=== PATIENT | female | born 1955 | race Two or more races ===

== ENCOUNTER 2025-02-04 11:15 | Inpatient (IN) | payer OTHER ==
[~2025-02-04] VITALS: Ht 121.9 cm; Wt 95.3 kg
[2025-02-04] MEDS ORDERED: XARELTO20 MG (12:44)
[2025-02-04] MEDS ORDERED: METFORMIN HCL500 M3 PO (12:44)
[2025-02-04] MEDS ORDERED: ADEMPAS2.5 MG PO (12:44)
[2025-02-04] MEDS ORDERED: ENTRESTO 97 MG1 EACH PO (12:45)
[2025-02-04] MEDS ORDERED: ACTOS30 MG PO (12:45)
[2025-02-04] MEDS ORDERED: SYNTHROID50 MCG PO (12:46)
[2025-02-04] MEDS ORDERED: LASIX20 MG PO (12:46)
[2025-02-04] MEDS ORDERED: EZALLOR SPRINKL20 MG PO (12:47)
[2025-02-04] MEDS ORDERED: ACID REDUCER20 M1 PO (12:47)
[2025-02-04] MEDS ORDERED: CARVEDILOL25 MG (12:50)
[2025-02-04] MEDS ORDERED: FARXIGA10 MG PO (12:50)
[2025-02-04] MEDS ORDERED: PLAQUENIL (12:51)
[2025-02-04] MEDS ORDERED: NEURONTIN300 MG PO (12:51)
[2025-02-11] MEDS ORDERED: CEFTRIAXONE SODIUM 2,000 MG VIAL IV ONE (10:45)
[2025-02-11] MEDS ORDERED: METRONIDAZOLE/SODIUM CHLORIDE 500 MG/100 ML PIGGYBACK IV ONE (10:45)
[2025-02-11] MEDS ORDERED: SUGAMMADEX SODIUM 200 MG/2 ML VIAL IV ONE (12:15)
[2025-02-11] MEDS ORDERED: MORPHINE SULFATE 4 MG/ML VIAL IV ONE ×2 (13:25→15:30)
[2025-02-11] MEDS ORDERED: MORPHINE SULFATE 4 MG/ML CARTRIDGE IV PRN (14:45)
[2025-02-11] MEDS ORDERED: OxyCODONE HCL 5 MG TABLET (ROXICODONE) PO PRN (14:45)
[2025-02-11] MEDS ORDERED: ONDANSETRON HCL 2 MG/ML VIAL IV PRN (14:45)
[2025-02-11] MEDS ORDERED: RINGERS SOLUTION,LACTATED 1,000 ML IV SCH (14:45)
[2025-02-11] MEDS ORDERED: METOCLOPRAMIDE HCL 5 MG/ML VIAL ONE (16:28)
[2025-02-11] MEDS ORDERED: HYOSCYAMINE SULFATE 0.125 MG TAB.SUBL SL SCH (17:00)
[2025-02-11] MEDS ORDERED: SIMETHICONE 125 MG CAPSULE PO SCH (17:00)
[2025-02-11] MEDS ORDERED: GABAPENTIN 300 MG CAPSULE PO SCH (17:00)
[2025-02-11] MEDS ORDERED: CELECOXIB 200 MG CAPSULE PO SCH (17:00)
[2025-02-11] MEDS ORDERED: METOCLOPRAMIDE HCL 5 MG/ML VIAL IV SCH (17:00)
[2025-02-11 17:12] LABS: BASO % 0.3 % (0.1-1.2); EOS # 0.01 (0.04-0.54); EOS % 0.1 % (0.7-7.0); LYMPH # 0.76 (1.18-3.74); LYMPH % 10.6 % (19.3-53.1); MEAN PLATELET VOLUME 10.50 fl (9.4-12.4); MONO # 0.47 (0.24-0.82); MONO % 6.5 % (4.7-12.5); NEUT # 5.92 (1.56-6.13); NEUT % 82.2 % (34.0-71.1); RED CELL DISTRIBUTION WIDTH 15.1 % (11.6-14.4)
[2025-02-11] MEDS ORDERED: ENALAPRILAT DIHYDRATE 1.25 MG/ML VIAL IV PRN (18:00)
[2025-02-11] MEDS ORDERED: INSULIN LISPRO 1,000 UNIT/10 ML UNITS SUBCUTANEO PRN (18:00)
[2025-02-11] MEDS ORDERED: LEVALBUTEROL HCL 0.63 MG/3 ML SOLUTION IH SCH (18:00)
[2025-02-11] MEDS ORDERED: DEXTROSE 50 % IN WATER 0.5 G/ML VIAL IV PRN (18:00)
[2025-02-11] MEDS ORDERED: ACETAMINOPHEN 500 MG GEL..CAP PO ONE (18:42)
[2025-02-11 20:00] VITALS: BP 155/74; O2SAT 95
[2025-02-11] MEDS ORDERED: ACETAMINOPHEN 500 MG GEL..CAP PO SCH (20:00)
[2025-02-11] MEDS ORDERED: FAMOTIDINE/PF 20 MG/2 ML VIAL IV PUSH SCH (21:00)
[2025-02-11] MEDS ORDERED: ADEMPAS 2.5 MG PO SCH (21:00)
[2025-02-11] MEDS ORDERED: CARVEDILOL 25 MG TABLET PO SCH (21:00)
[2025-02-11] MEDS ORDERED: ENTRESTO 97 MG/103 MG PO SCH (21:00)
[2025-02-11 22:42] LABS: ABG PH 7.430 (7.35-7.45); BICARBONATE 24.7 mmol/l (23-25); o2 32 %
[2025-02-11 22:43] LABS: ABG PO2 78.4 mmHg (80-100)
[2025-02-12] VITALS (9 sets, daily range): BP systolic 105–121; BP diastolic 50–64; O2SAT 90–98
[2025-02-12] MEDS ORDERED: SYNTHROID 50 MCG (MARCA ORIGINAL) PO SCH (06:00)
[2025-02-12 07:09] LABS: BASO % 0.2 % (0.1-1.2); EOS # 0.13 (0.04-0.54); EOS % 2.6 % (0.7-7.0); LYMPH # 0.66 (1.18-3.74); LYMPH % 13.4 % (19.3-53.1); MEAN PLATELET VOLUME 10.40 fl (9.4-12.4); MONO # 0.41 (0.24-0.82); MONO % 8.4 % (4.7-12.5); NEUT # 3.69 (1.56-6.13); NEUT % 75.2 % (34.0-71.1); RED CELL DISTRIBUTION WIDTH 15.3 % (11.6-14.4)
[2025-02-12 07:19] LABS: BUN CREA RATIO 29.0 (7.0-25.0); CREATININE SERUM 0.38 mg/dL (0.55-1.02); GFR 168.92; GLUCOSE FASTING 106.0 mg/dL (65-100); OSMOLALITY SERUM 285.0 MOSM/KG (275-295)
[2025-02-12] MEDS ORDERED: POTASSIUM CHLORIDE 20MEQ/100ML H2O PB IV STA (07:57)
[2025-02-12] MEDS ORDERED: MAGNESIUM SULFATE IN WATER 50 ML IV NR (08:00)
[2025-02-12] MEDS ORDERED: LACTOBACILLUS ACIDOPHILUS 1 CAP CAP PO SCH (09:00)
[2025-02-12] MEDS ORDERED: LACTULOSE 20 G/30 ML BLIST.PACK PO SCH (09:00)
[2025-02-12] MEDS ORDERED: DEXTROSE 50 % IN WATER 0.5 G/ML VIAL IV PRN (11:00)
[2025-02-12] MEDS ORDERED: INSULIN LISPRO 1,000 UNIT/10 ML UNITS SUBCUTANEO PRN (11:00)
[2025-02-12] MEDS ORDERED: ENOXAPARIN SODIUM 60 MG/0.6 ML SYRINGE SUBCUTANEO STA (14:00)
[2025-02-12] MEDS ORDERED: ROSUVASTATIN CALCIUM 20 MG TABLET PO SCH (17:00)
[2025-02-12] MEDS ORDERED: ENOXAPARIN SODIUM 40 MG/0.4 ML SYRINGE SUBCUTANEO SCH (17:00)
[2025-02-13] VITALS (8 sets, daily range): BP systolic 88–130; BP diastolic 53–70; O2SAT 90–98
[2025-02-13] MEDS ORDERED: 0.9 % SODIUM CHLORIDE 1 ML IV ONE (00:15)
[2025-02-13 06:27] LABS: BASO % 0.2 % (0.1-1.2); EOS # 0.20 (0.04-0.54); EOS % 5.0 % (0.7-7.0); LYMPH # 0.64 (1.18-3.74); LYMPH % 15.8 % (19.3-53.1); MEAN PLATELET VOLUME 11.10 fl (9.4-12.4); MONO # 0.36 (0.24-0.82); MONO % 8.9 % (4.7-12.5); NEUT # 2.82 (1.56-6.13); NEUT % 69.9 % (34.0-71.1); RED CELL DISTRIBUTION WIDTH 15.8 % (11.6-14.4)
[2025-02-13 06:59] LABS: BUN CREA RATIO 19.0 (7.0-25.0); CREATININE SERUM 0.37 mg/dL (0.55-1.02); GFR 174.2; GLUCOSE FASTING 81.0 mg/dL (65-100); OSMOLALITY SERUM 291.0 MOSM/KG (275-295)
[2025-02-13] MEDS ORDERED: ENOXAPARIN SODIUM 40 MG/0.4 ML SYRINGE SUBCUTANEO SCH (09:00)
[2025-02-13] MEDS ORDERED: ENOXAPARIN SODIUM 60 MG/0.6 ML SYRINGE SUBCUTANEO SCH (09:00)
[2025-02-13] MEDS ORDERED: MAGNESIUM CHLORIDE 70 MG TABLET.DR PO STA (10:16)
[2025-02-13] MEDS ORDERED: POTASSIUM CHLORIDE 8 MEQ TABLET PO STA (10:16)
== END 2025-02-13 17:01 | disposition home or self-care (01) | DRG 333 ==
LOC: SURG 02-11 07:00 → O/R 02-11 07:00 → SURH 02-11 10:30 → SURG 02-11 13:40
PROVIDERS: Internal Medicine Geriatric Medicine; ADMIT Colon & Rectal Surgery; ATTEND Colon & Rectal Surgery
PROC: 4A033R1 Measurement of Arterial Saturation, Peripheral, Percutaneous Approach (ICD-10-PCS; 2025-02-11)
PROC: 4A12X4Z Monitoring of Cardiac Electrical Activity, External Approach (ICD-10-PCS; 2025-02-11)
PROC: 3E0F7GC Introduction of Other Therapeutic Substance into Respiratory Tract, Via Natural or Artificial Opening (ICD-10-PCS; 2025-02-11)
PROC: 0DTP4ZZ Resection of Rectum, Percutaneous Endoscopic Approach (ICD-10-PCS; principal; 2025-02-11 10:30)
DX: K57.32 Diverticulitis of large intestine without perforation or abscess without bleeding (principal); D68.59 Other primary thrombophilia; I10 Essential (primary) hypertension; E11.9 Type 2 diabetes mellitus without complications; J44.9 Chronic obstructive pulmonary disease, unspecified; Z86.711 Personal history of pulmonary embolism; E03.9 Hypothyroidism, unspecified; E66.01 Morbid (severe) obesity due to excess calories; I27.20 Pulmonary hypertension, unspecified; Z68.36 Body mass index [BMI] 36.0-36.9, adult

== ENCOUNTER 2025-03-22 11:36 | Inpatient (IN) | payer OTHER ==
[~2025-03-22] VITALS: Ht 162.6 cm; Wt 90.7 kg
[~2025-03-22 11:36] MED LIST: ACID REDUCER20 M1 PO; ACTOS30 MG PO; ADEMPAS2.5 MG PO; CARVEDILOL25 MG; ENTRESTO 97 MG1 EACH PO; EZALLOR SPRINKL20 MG PO; FARXIGA10 MG PO; IPRATROPIU0.2 MG/1 M; IRON236 MG; LASIX20 MG PO; METFORMIN HCL500 M3 PO; NEURONTIN300 MG PO; PLAQUENIL; SYNTHROID50 MCG PO; XARELTO20 MG
[2025-03-22] MEDS ORDERED: METFORMIN HCL1000 M2 (11:46)
[2025-03-22] MEDS ORDERED: XARELTO20 MG (11:46)
[2025-03-22] MEDS ORDERED: ADEMPAS2.5 MG (11:46)
[2025-03-22] MEDS ORDERED: PLAQUENIL (11:47)
[2025-03-22] MEDS ORDERED: ACTOS30 MG (11:47)
[2025-03-22] MEDS ORDERED: CRESTOR40 MG (11:47)
[2025-03-22] MEDS ORDERED: ENTRESTO 97 MG1 EACH (11:47)
[2025-03-22] MEDS ORDERED: SYNTHROID50 MCG (11:47)
[2025-03-22] MEDS ORDERED: CARVEDILOL (11:48)
[2025-03-22] MEDS ORDERED: OMEPRAZOLE20 M2 (11:48)
[2025-03-22] MEDS ORDERED: FARXIGA10 MG (11:48)
[2025-03-22] MEDS ORDERED: HORIZANT300 MG (11:48)
[2025-03-22] MEDS ORDERED: FEROSUL (11:48)
--- NOTE | 2025-03-22 11:49 | NUR ---
SE RECIBE PACIENTE ALERTA Y ORIENTADA X 3 ESFERAS EN [facility]ANCIA DEL [facility] POR DIVERTICULITIS. PACIENTE INDICA QUE DESDE HACE VARIOS RUBIO PRESENTA DOLOR ADOMINAL, VOMITOS Y DIARREAS. REFIERE QUE FUE OPERADA POR EN EL MES DE SEPTIEMBRE Y QUE LE REMOVIERON PARTE DEL INTESTINO.
[2025-03-22] MEDS ORDERED: DEXTROSE 50 % IN WATER 0.5 G/ML DISP.SYRIN IV ONE (11:54)
[2025-03-22] MEDS ORDERED: DEXTROSE 50 % IN WATER 0.5 G/ML VIAL IV ONE (12:00)
--- NOTE | 2025-03-22 12:00 | NUR ---
SE NOTIFICA A DIRECTOR TELEHEALTH TOSTE DXT EN 66MG/DL. SE ADMINISTRA DEXTROSE 25GM 50% IV.
[2025-03-22] MEDS ORDERED: FAMOTIDINE/PF 20 MG/2 ML VIAL IV ONE (12:30)
[2025-03-22] MEDS ORDERED: ONDANSETRON HCL 2 MG/ML VIAL IV ONE (12:30)
[2025-03-22] MEDS ORDERED: 0.9 % SODIUM CHLORIDE 1,000 ML IV ONE (12:30)
[2025-03-22] MEDS ORDERED: PIPERACILLIN/TAZOBACTAM SODIUM 3.375 GM VIAL IV ONE ×3 (12:30→16:26)
[2025-03-22] MEDS ORDERED: ONDANSETRON HCL 2 MG/ML VIAL ONE (12:47)
[2025-03-22] MEDS ORDERED: FAMOTIDINE/PF 20 MG/2 ML VIAL ONE (12:47)
--- NOTE | 2025-03-22 12:57 | NUR ---
SE ORIENTA A PACIENTE SOBRE TRATAMIENTO MEDICO, REFIERE ENTENDER. SE REALIZAN MUESTRAS DE LABORATORIO BAJO MEDIDAS ASEPTICAS. SE ADMINISTRAN MEDICAMENTOS STEFAN ORDEN MEDICA. SE COORDINAN BJ X. SE REALIZA EKG. PACIENTE MANEJADA POR . PENDIENTE RE-EVALUACION MEDICA.
[2025-03-22 13:25] LABS: BASO % 0.6 % (0.1-1.2); EOS # 0.23 (0.04-0.54); EOS % 5.0 % (0.7-7.0); LYMPH # 0.50 (1.18-3.74); LYMPH % 10.8 % (19.3-53.1); MEAN PLATELET VOLUME 10.10 fl (9.4-12.4); MONO # 0.28 (0.24-0.82); MONO % 6.1 % (4.7-12.5); NEUT # 3.56 (1.56-6.13); NEUT % 77.1 % (34.0-71.1); RED CELL DISTRIBUTION WIDTH 15.5 % (11.6-14.4)
[2025-03-22] MEDS ORDERED: PIPERACILLIN/TAZOBACTAM SODIUM 3.375 GM in DEXTROSE 5 % IN WATER 100 ML IV SCH (13:26)
[2025-03-22] MEDS ORDERED: ONDANSETRON HCL 2 MG/ML VIAL IV PRN (13:30)
[2025-03-22] MEDS ORDERED: RINGERS SOLUTION,LACTATED 1,000 ML IV SCH (13:30)
[2025-03-22] MEDS ORDERED: OxyCODONE HCL 5 MG TABLET (ROXICODONE) PO PRN (13:30)
[2025-03-22] MEDS ORDERED: MORPHINE SULFATE 4 MG/ML CARTRIDGE IV PRN (13:30)
[2025-03-22 13:31] LABS: ERYTHROCYTE SEDIMENTATION RATE 4 mm/hr (0-30)
[2025-03-22 13:34] LABS: URINE APPEARANCE Clear; URINE BILIRRUBIN Negative (NEGATIVE); URINE BLOOD Negative; URINE COLOR Dark Yellow; URINE KETONE 15 (NEGATIVE); URINE LEUKOCYTE Small; URINE NITRATE Negative; URINE PROTEIN 30 (NEGATIVE); URINE UROBILINOGEN 1.0 E.U./dl
[2025-03-22 13:38] LABS: URINE BACTERIA 30.0 uL (0.0-1933); URINE EPITHELIAL CELLS 59.5 uL (0.0-38.8); URINE RBC 6.8 uL (0.0-20.8); URINE WBC 222.4 uL (0.0-23.2)
[2025-03-22 13:41] LABS: INR 1.21
[2025-03-22 13:46] LABS: ALT/SGPT 15.0 U/L (12-78); AST/SGOT 13.0 U/L (15-37); BILIRUBIN TOTAL 1.16 mg/dL (0.3-1.2); BUN CREA RATIO 33.0 (7.0-25.0); CREATININE SERUM 0.49 mg/dL (0.55-1.02); GFR 125.97; GLOBULINA 2.7 G/DL (2.4-3.5); GLUCOSE FASTING 92.0 mg/dL (65-100); OSMOLALITY SERUM 290.0 MOSM/KG (275-295)
[2025-03-22 13:52] LABS: URINE CAST 0.43 uL (0.0-1.40); URINE GLUCOSE >=1000 MG/DL (NEGATIVE)
[2025-03-22] MEDS ORDERED: INSULIN LISPRO 1,000 UNIT/10 ML UNITS SUBCUTANEO PRN (14:15)
[2025-03-22] MEDS ORDERED: DEXTROSE 50 % IN WATER 0.5 G/ML DISP.SYRIN IV PRN (14:15)
[2025-03-22] MEDS ORDERED: POTASSIUM PHOS,M-BASIC-D-BASIC 15 MM in 0.9 % SODIUM CHLORIDE 250 ML IV ONE (16:00)
[2025-03-22 16:01] VITALS: BP 100/60; O2SAT 98
[2025-03-22] MEDS ORDERED: PATIENTS OWN MEDICATION (MEDICAMENTO EN PISO) PO SCH ×2 (17:00)
[2025-03-22] MEDS ORDERED: CARVEDILOL 25 MG TABLET PO SCH (17:00)
[2025-03-22 18:50] VITALS: BP 123/66; O2SAT 95
[2025-03-23 01:19] VITALS: BP 128/67; O2SAT 98
[2025-03-23] MEDS ORDERED: LEVOTHYROXINE SODIUM 50 MCG TABLET PO SCH (06:00)
[2025-03-23 07:55] LABS: BASO % 1.0 % (0.1-1.2); EOS # 1.03 (0.04-0.54); LYMPH # 0.84 (1.18-3.74); LYMPH % 16.6 % (19.3-53.1); MEAN PLATELET VOLUME 11.10 fl (9.4-12.4); MONO # 0.52 (0.24-0.82); MONO % 10.3 % (4.7-12.5); NEUT # 2.60 (1.56-6.13); NEUT % 51.5 % (34.0-71.1); RED CELL DISTRIBUTION WIDTH 15.7 % (11.6-14.4)
[2025-03-23 08:00] VITALS: BP 111/63; O2SAT 97
[2025-03-23 08:01] LABS: BUN CREA RATIO 32.0 (7.0-25.0); CREATININE SERUM 0.5 mg/dL (0.55-1.02); GFR 123.06; GLUCOSE FASTING 71.0 mg/dL (65-100); OSMOLALITY SERUM 290.0 MOSM/KG (275-295)
[2025-03-23] MEDS ORDERED: PANTOPRAZOLE SODIUM 40 MG/VIAL VIAL IV SCH (09:00)
[2025-03-23] MEDS ORDERED: ENOXAPARIN SODIUM 100 MG/ML SYRINGE SUBCUTANEO SCH (09:00)
[2025-03-23] MEDS ORDERED: ENOXAPARIN SODIUM 40 MG/0.4 ML SYRINGE SUBCUTANEO SCH ×2 (09:00→17:00)
[2025-03-23] MEDS ORDERED: ROSUVASTATIN CALCIUM 20 MG TABLET PO SCH (09:00)
[2025-03-23 09:12] LABS: EOS % 20.4 % (0.7-7.0); EOSINOPHIL MAN 23.0 %; LYMPHOCYTE MAN 17.0 %; MONOCYTE MAN 4.0 %; NEUTROPHILS MAN 56.0 %
[2025-03-23] MEDS ORDERED: DEXTROSE 5 %-0.45 % SOD CHLORD 1,000 ML IV SCH (12:15)
[2025-03-23] MEDS ORDERED: DIATRIZOATE MEGLUMINE, SODIUM 30 ML BOTTLE PO NR (13:00)
[2025-03-23] MEDS ORDERED: ORPHENADRINE CITRATE 30 MG/ML AMPUL IM NR (13:00)
[2025-03-23 15:36] LABS: BUN CREA RATIO 35.0 (7.0-25.0); CHOL HDL RATIO 2.2 (0-5.0); CREATININE SERUM 0.43 mg/dL (0.55-1.02); GFR 146.46; GLUCOSE FASTING 86.0 mg/dL (65-100); HDL 41.0 mg/dl (40-60); LDL 30.0 mg/dl (0-130); OSMOLALITY SERUM 287.0 MOSM/KG (275-295); VLDL 21.0 (0-39)
[2025-03-23 16:00] VITALS: BP 146/69; O2SAT 98
[2025-03-23] MEDS ORDERED: AA 2.36%/D6.8W/FAT/E-LYTES NO9 1,440 ML IV SCH (17:00)
[2025-03-23] MEDS ORDERED: ORPHENADRINE CITRATE 30 MG/ML AMPUL IM SCH (21:00)
[2025-03-24 01:06] VITALS: BP 136/82; O2SAT 98
[2025-03-24 09:23] VITALS: BP 147/62; O2SAT 96
[2025-03-24] MEDS ORDERED: SODIUM CHLORIDE 0.45 % 1,000 ML IV SCH (12:15)
[2025-03-24] MEDS ORDERED: Cyanocobalamin/Mecobalamin 1 TAB.SL SL NR (13:45)
[2025-03-24] MEDS ORDERED: SOD FERRIC GLUC COMPLX/SUCROSE 62.5 MG in 0.9 % SODIUM CHLORIDE 50 ML IV NR (13:45)
[2025-03-24] MEDS ORDERED: LACTOBACILLUS ACIDOPHILUS 1 CAP CAP PO SCH (17:00)
[2025-03-24] MEDS ORDERED: ROSUVASTATIN CALCIUM 20 MG TABLET PO SCH (17:00)
[2025-03-24 18:21] VITALS: BP 130/64; O2SAT 96
[2025-03-24] MEDS ORDERED: GABAPENTIN 300 MG CAPSULE PO SCH (21:00)
[2025-03-25 00:18] VITALS: BP 119/50; O2SAT 96
[2025-03-25 08:00] VITALS: BP 122/71; O2SAT 97
[2025-03-25] MEDS ORDERED: Cyanocobalamin/Mecobalamin 1 TAB.SL SL SCH (09:00)
[2025-03-25] MEDS ORDERED: SOD FERRIC GLUC COMPLX/SUCROSE 62.5 MG in 0.9 % SODIUM CHLORIDE 50 ML IV SCH (09:00)
[2025-03-25 16:25] VITALS: BP 110/65; O2SAT 97
== END 2025-03-25 17:41 | disposition home or self-care (01) | DRG 395 ==
LOC: ER 11:36 → SURH 13:38 → SEC-K 13:38 → SURH 16:34
PROVIDERS: Surgery; ADMIT Colon & Rectal Surgery; ATTEND Colon & Rectal Surgery
PROC: BW21YZZ Computerized Tomography (CT Scan) of Abdomen and Pelvis using Other Contrast (ICD-10-PCS; principal; 2025-03-23)
DX: K63.89 Other specified diseases of intestine (principal); I10 Essential (primary) hypertension; E03.8 Other specified hypothyroidism